=== PATIENT | male | born 1945 | race Caucasian/White ===

== ENCOUNTER 2017-04-19 19:16 | Emergency (ER) | payer OTHER ==
[2017-04-19 19:49] VITALS: BP 133/70; PULSE 62; TEMP 98.9; BMI 29.7
[2017-04-19] MEDS ORDERED: diazePAM 5 MG TABLET PO ONE (21:19)
[2017-04-19] MEDS ORDERED: KETOROLAC TROMETHAMINE 30 MG/1 ML VIAL IM ONE (21:19)
--- NOTE | 2017-04-19 21:19 | PDOC ---
History of Present Illness - General Chief Complaint: Pain Stated Complaint: NECK PAIN Time Seen by Provider: 04/19/17 20:58 History Source: Patient Exam Limitations: No Limitations - History of Present Illness Initial Comments: 04/19/17 21:19 CHIEF COMPLAINT: Neck pain HISTORY OF PRESENT ILLNESS: This is a 71-year-old male with aistory of HTN and NIDDM who presents for evaluation of right sided neck pain and sss since morning. His daughter gave him some ibuprofen and Flexeril with partial relief. He denies fevers/chills, chest pain, dizziness, headaches, or any other symptoms. Vital signs on arrival are unremarkable. REVIEW OF SYSTEMS: GENERAL/CONSTITUTIONAL: No fever or chills. No weakness. No weight change. HEAD, EYES, EARS, NOSE AND THROAT: No change in vision. No ear pain or discharge. No sore throat. CARDIOVASCULAR: No chest pain or palpitations. RESPIRATORY: No cough, wheezing, or shortness of breath. GASTROINTESTINAL: No nausea, vomiting, diarrhea or constipation. GENITOURINARY: No dysuria, frequency, or change in urination. MUSCULOSKELETAL: See HPI. SKIN: No rash or easy bruising. NEUROLOGIC: No headache, vertigo, loss of consciousness, or loss of sensation. PSYCHIATRIC: No depression or anxiety. ENDOCRINE: No increased thirst. No abnormal weight change. HEMATOLOGIC/LYMPHATIC: No anemia, easy bleeding, or history of blood clots. ALLERGIC/IMMUNOLOGIC: No hives or skin allergy. No latex allergy. PHYSICAL EXAM: GENERAL: The patient is awake, alert, and fully oriented, in no acute distress. HEAD: Normal with no signs of trauma. ENT: Pupils equal, round and reactive to light, extraocular movements intact, sclera anicteric, conjunctiva clear. Unable to turn head to right. LUNGS: Clear to auscultation bilaterally. Normal excursion. No respiratory distress or use of accessory muscles. CV: RRR, S1/S2, no MRG. Cap refill < 2 sec. ABDOMEN: Soft, non-distended, non-tender. EXTREMITIES: Normal range of motion, no edema. NEUROLOGICAL: Normal speech, normal gait. CN II-XII grossly intact. PSYCH: Normal mood, normal affect. SKIN: Warm, dry, normal turgor, no rashes or lesions noted. Past History - Past Medical History Allergies/Adverse Reactions: Allergies Allergy/AdvReac Type Severity Reaction Status Date / Time No Known Drug Allergies Allergy Verified 04/19/17 19:45 Home Medications: Ambulatory Orders Glipizide 5 mg PO DAILY 01/21/14 Enalapril Maleate [Vasotec] 10 mg PO DAILY 06/27/15 Metformin HCl 850 mg PO DAILY 06/27/15 Multivits,Ca,Min/Iron/FA/Lycop [Centrum Men's Tablet] 1 tab PO DAILY 06/27/15 Cyclobenzaprine HCl [Flexeril -] 10 mg PO PRN 04/19/17 Ibuprofen 800 mg PO PRN 04/19/17 Anemia: No Asthma: No Cancer: Yes (PROSTATE) Cardiac Disorders: No CVA: No COPD: No CHF: No Dementia: No Diabetes: Yes (Type 2, pancreatitis) GI Disorders: No Disorders: No HTN: No Hypercholesterolemia: No Liver Disease: No Suicide Attempt (Hx): No Seizures: No Thyroid Disease: No - Psycho/Social/Smoking Cessation Hx Anxiety: No Suicidal Ideation: No Smoking History: Never smoked Have you smoked in the past 12 months: No If you are a former smoker, when did you quit?: over 30 years ago Information on smoking cessation initiated: No 'Breaking Loose' booklet given: 01/22/14 Hx Alcohol Use: No Drug/Substance Use Hx: No Substance Use Type: None Hx Substance Use Treatment: No *Physical Exam - Vital Signs Last Vital Signs Temp Pulse Resp BP Pulse Ox 98.9 F 62 19 133/70 99 04/19/17 19:46 04/19/17 19:46 04/19/17 19:46 04/19/17 19:46 04/19/17 19:46 Medical Decision Making - Medical Decision Making 04/20/17 22:35 A/P: 71 year old male with torticollis. -Diazepam and Toradol given with relief -Followup instructions and return precautions reviewed *DC/Admit/Observation/Transfer Diagnosis at time of Disposition: Torticollis - Discharge Dispostion Disposition: HOME Condition at time of disposition: Improved Admit: No - Referrals Referrals: Scout Solis MD [Primary Care Provider] - 3 days - Patient Instructions Printed Discharge Instructions: DI for Torticollis Additional Instructions: -Take ibuprofen and diazepam as prescribed -Follow up with Dr. Solis next week -Return for worsening neck pain, headache, fever, or any other concerning symptoms
[2017-04-19] MEDS ORDERED: diazePAM 5 MG TABLET ONE (21:22)
[2017-04-19] MEDS ORDERED: KETOROLAC TROMETHAMINE 30 MG/1 ML VIAL ONE (21:22)
== END 2017-04-19 21:59 | disposition home or self-care (01) ==
LOC: JERFT 19:16
PROC: 3E0233Z Introduction of Anti-inflammatory into Muscle, Percutaneous Approach (ICD-10-PCS; principal; 2017-04-19)
DX: M43.6 Torticollis (principal); I10 Essential (primary) hypertension; Z79.84 Long term (current) use of oral hypoglycemic drugs; Z85.46 Personal history of malignant neoplasm of prostate
CPT/HCPCS: 96372; 99281-25

== ENCOUNTER 2021-02-14 15:04 | Emergency (ER) | payer OTHER ==
[2021-02-14 15:14] VITALS: BP 108/66; PULSE 60; TEMP 98.1; BMI 28.7
[2021-02-14] MEDS ORDERED: METHOCARBAMOL 500 MG TABLET PO ONE (15:32)
[2021-02-14] MEDS ORDERED: ACETAMINOPHEN 500 MG TABLET (FP) PO ONE (15:32)
[2021-02-14] MEDS ORDERED: LIDOCAINE 5% TOPICAL PATCH TP ONE (15:32)
[2021-02-14] MEDS ORDERED: LIDOCAINE 5% TOPICAL PATCH ONE (15:34)
[2021-02-14] MEDS ORDERED: ACETAMINOPHEN 500 MG TABLET (FP) ONE (15:34)
[2021-02-14] MEDS ORDERED: METHOCARBAMOL 500 MG TABLET ONE (15:34)
[2021-02-14] MEDS ORDERED: LIDOCAINE PATCH REMOVAL MC SCH (22:00)
== END 2021-02-14 15:43 | disposition home or self-care (01) ==
LOC: JER 15:04 → JERFT 15:04
DX: M43.6 Torticollis (principal)
CPT/HCPCS: 99283-25

== ENCOUNTER 2023-02-13 04:49 | Emergency (ER) | payer OTHER ==
[2023-02-13 04:58] VITALS: BMI 30.7
[2023-02-13] MEDS ORDERED: LIDOCAINE 5% TOPICAL PATCH TP ONE (05:31)
[2023-02-13] MEDS ORDERED: ACETAMINOPHEN 1000 MG/100 ML BAG IVPB ONE (05:31)
[2023-02-13] MEDS ORDERED: ACETAMINOPHEN INJECTION 100 ML IVPB ONE (05:39)
[2023-02-13] MEDS ORDERED: LIDOCAINE 5% TOPICAL PATCH ONE (05:39)
[2023-02-13 06:05] LABS: INR 3.41 (0.83-1.09); PROTHROMBIN TIME (PATIENT) 39.1 SEC (9.7-13.0)
[2023-02-13 06:08] LABS: ACTIVATED PTT 52.4 SECONDS (25.2-36.5)
[2023-02-13 06:15] LABS: BASO % 0.5 % (0-2.0); EOS % 6.5 % (0-4.5); HEMATOCRIT 36.9 % (35.4-49); HEMOGLOBIN 11.8 GM/dL (11.7-16.9); LYMPH % 8.9 % (8-40); MCH 29.2 pg (25.7-33.7); MCHC 32.1 g/dl (32.0-35.9); MEAN CELL VOLUME 90.8 fl (80-96); MEAN PLT VOLUME 8.4 fl (7.5-11.1); MONO % 6.2 % (3.8-10.2); NEUT % 77.9 % (42.8-82.8); PLATELET COUNT 176 10^3/uL (134-434); RBC 4.06 M/mm3 (4.00-5.60); RDW 14.5 % (11.9-15.9); WHITE BLOOD COUNT 10.2 K/mm3 (4.0-10.0)
[2023-02-13 06:30] LABS: POTASSIUM 4.3 mmol/L (3.5-5.1)
[2023-02-13 06:32] LABS: CALCIUM 8.9 mg/dL (8.5-10.1)
[2023-02-13 06:33] LABS: ALBUMIN 3.4 g/dl (3.4-5.0); BLOOD UREA NITROGEN 14.6 mg/dL (7-18)
[2023-02-13 06:36] LABS: CREATININE 0.8 mg/dL (0.55-1.3)
[2023-02-13 06:37] LABS: BILIRUBIN,TOTAL 0.3 mg/dL (0.2-1); TOT PROT 6.8 g/dl (6.4-8.2)
[2023-02-13 11:32] VITALS: BP 98/54; PULSE 54; RESP 16; TEMP 98.3
[2023-02-13] MEDS ORDERED: LIDOCAINE PATCH REMOVAL MC SCH (22:00)
== END 2023-02-13 13:25 | disposition home or self-care (01) ==
LOC: JER 04:49
PROC: 3E033NZ Introduction of Analgesics, Hypnotics, Sedatives into Peripheral Vein, Percutaneous Approach (ICD-10-PCS; principal; 2023-02-13)
DX: M54.2 Cervicalgia (principal); R79.1 Abnormal coagulation profile
CPT/HCPCS: 36415; 70450-TC; 70496-TC; 70498-TC; 80053; 84484; 85025; 85610; 85730; 93005; 93010; 99285-25; Q9967

== ENCOUNTER 2023-07-11 15:26 | Emergency (ER) | payer OTHER ==
[2023-07-11 15:54] VITALS: BMI 29.7
[2023-07-11 17:59] LABS: EOS % 11.7 % (0-4.5); HEMATOCRIT 41.2 % (35.4-49); HEMOGLOBIN 13.5 GM/dL (11.7-16.9); LYMPH % 18.2 % (8-40); MCH 29.4 pg (25.7-33.7); MCHC 32.8 g/dl (32.0-35.9); MEAN CELL VOLUME 89.5 fl (80-96); MEAN PLT VOLUME 7.9 fl (7.5-11.1); MONO % 6.1 % (3.8-10.2); PLATELET COUNT 208 10^3/uL (134-434); WHITE BLOOD COUNT 7.3 K/mm3 (4.0-10.0)
[2023-07-11 18:09] LABS: INR 1.49 (0.83-1.09); PROTHROMBIN TIME (PATIENT) 17.2 SEC (9.7-13.0)
[2023-07-11 18:12] LABS: ACTIVATED PTT 36.1 SECONDS (25.2-36.5)
[2023-07-11 18:26] LABS: POTASSIUM 4.3 mmol/L (3.5-5.1)
[2023-07-11 18:28] LABS: CALCIUM 9.1 mg/dL (8.5-10.1)
[2023-07-11 18:29] LABS: ALBUMIN 3.8 g/dl (3.4-5.0); BLOOD UREA NITROGEN 13.4 mg/dL (7-18)
[2023-07-11 18:31] LABS: CREATININE 0.8 mg/dL (0.55-1.3)
[2023-07-11 18:33] LABS: BILIRUBIN,TOTAL 0.3 mg/dL (0.2-1); TOT PROT 7.4 g/dl (6.4-8.2)
[2023-07-11] MEDS ORDERED: FAMOTIDINE 20 MG/50 ML IVPB 20 MG/50 ML MG IVPB ONE ×2 (18:40→18:56)
[2023-07-11 22:04] VITALS: BP 152/70; PULSE 64; RESP 18; TEMP 97.6
== END 2023-07-11 22:07 | disposition home or self-care (01) ==
LOC: JER 15:26
PROC: 3E033GC Introduction of Other Therapeutic Substance into Peripheral Vein, Percutaneous Approach (ICD-10-PCS; principal; 2023-07-11)
DX: R14.0 Abdominal distension (gaseous) (principal); R06.02 Shortness of breath; C34.90 Malignant neoplasm of unspecified part of unspecified bronchus or lung; Z20.822 Contact with and (suspected) exposure to COVID-19
CPT/HCPCS: 0241U-QW; 36415; 71046-TC-FY; 71250-TC; 74019-TC-FY; 80053; 84484; 85025; 85610; 85730; 93005; 93010; 96365; 99285-25

== ENCOUNTER 2023-07-22 15:05 | Emergency (ER) | payer OTHER ==
[2023-07-22 15:14] VITALS: BP 119/70; PULSE 76; RESP 18; TEMP 98.3; BMI 29.7
[2023-07-22] MEDS ORDERED: LIDOCAINE 4% PATCH TP ONE ×2 (18:50→18:55)
[2023-07-23] MEDS ORDERED: LIDOCAINE PATCH REMOVAL MC SCH (07:00)
== END 2023-07-22 19:30 | disposition home or self-care (01) ==
LOC: JERFT 15:05
DX: M54.2 Cervicalgia (principal); R53.1 Weakness; R20.2 Paresthesia of skin; M50.20 Other cervical disc displacement, unspecified cervical region; M79.10 Myalgia, unspecified site
CPT/HCPCS: 72125-TC; 99284-25